=== PATIENT | female | born 1950 | race Caucasian/White ===

== ENCOUNTER 2017-03-02 13:44 | Emergency (ER) | payer MEDICARE, OTHER ==
--- OUTSIDE RECORDS SUMMARY | 2017-03-02 14:57 | XMS REPORT | Continuity of Care Document ---
:1950 Author Organization [facility] ([facility]) Address [place] [address] Phone [phone] Care Team Providers Name Role Phone Andry Mcrae Primary Care Provider [phone] Source Comments This disclosure is being made pursuant to the Care Everywhere program, applicable federal and state laws, and may not contain all informaitonavailable regarding this patient.[facility] ([facility]) Active Allergies and Adverse Reactions Allergen Noted Date Severity Reactions Comments Tetrahydrozoline 07/01/2012 OTHER Experienced pain. Unable to recall the name of the opthalmic eye drops she reacted to. Current Medications Prescription Sig. Disp. Refills Start Date End Date Status levothyroxine 50 mcg Take 50 mcg by mouth Active tablet every morning before breakfast. atorvastatin (LIPITOR) Take 10 mg by mouth Active 10 mg tablet 3 times weekly. Takes at HS on . lisinopril-hydrochlorot Take 0.5 Tabs by Active hiazide 20-12.5 mg per mouth daily. tablet multivitamin tablet Take 1 Tab by mouth Active daily. Omeprazole 20 mg TbEC Take 20 mg by mouth Active daily. OMEGA-3S/DHA/EPA/FISH Take 2 Caps by mouth Active OIL (OMEGA 3 PO) daily. VITAMIN B COMPLEX PO Take by mouth Active daily. tamsulosin 0.4 mg ER Take 1 Cap by mouth 30 Cap 11 03/04/2013 Active capsule daily. Indications: incomplete bladder emptying Active Problems Problem Noted Date HTN (hypertension) 07/02/2012 GERD (gastroesophageal reflux disease) 07/02/2012 Hypothyroid 07/02/2012 Urinary urgency 07/02/2012 Social History Tobacco Use Types Packs/Day Years Used Date Never Smoker Smokeless Tobacco: Never Used Alcohol Use Drinks/Week oz/Week Comments No Last Filed Vital Signs Vital Sign Reading Time Taken Blood Pressure 127/67 03/04/2013 11:31 AM CDT Pulse 78 03/04/2013 11:31 AM CDT Temperature 36.6 C (97.9 F) 03/04/2013 11:31 AM CDT Respiratory Rate 20 03/04/2013 11:31 AM CDT Height 1.575 m (5' 2") 09/03/2012 12:40 PM NUTRITION CONSULTANT Weight 76.204 kg (168 lb) 09/03/2012 12:40 PM NUTRITION CONSULTANT Body Mass Index 30.72 09/03/2012 12:40 PM NUTRITION CONSULTANT Oxygen Saturation 96% 03/04/2013 11:31 AM CDT Plan of Care Health Maintenance Due Date Last Done Comments HCV Screening 1950 Hepatitis B Vaccine (1 of 3 - Primary Series) 1950 Tdap Vaccine 1962 Lipid Disorder Screening 1969 Td Vaccine 1969 Cervical Cancer Screening 1981 Mammogram 1991 Colonoscopy 02/14/2001 Zoster Vaccine 2011 Osteoporosis Screening (DXA Bone Density) 02/16/2016 Pneumococcal Vaccine (1 of 2 - PCV13) 02/16/2016 Influenza Vaccine: Seasonal (#1) 05/07/2016 Results from Last 3 Months Not on file
[2017-03-02 15:07] LABS: Hematocrit 39.6 % (37.0-47.0); Hemoglobin 13.3 gm/dL (12.5-16.0); Mean Cell Volume 88.4 fl (78-100); Mean Corpuscular Hemoglobin 29.7 pg (27-31); Mean Corpuscular Hgb Conc 33.6 g/dl (32-36); Mean Platelet Volume 9.5 fl (6.0-9.5); Neutrophil # 5.7 K/mm3 (1.3-6.0); Neutrophil % 61.1 % (42-75.0); Platelet Count 211 K/mm3 (150-450); Red Blood Count 4.48 M/mm3 (4.2-5.4); Red Cell Distribution Width 12.3 % (11.5-14.0); White Blood Count 9.3 K/mm3 (4.0-10.5)
--- NOTE | 2017-03-02 15:10 | ERNOTE ---
Lower Extremity HPI - Narrative Date of Service: 03/02/17 - General Lower Extremities Pain: leg: bilateral - calf Time Seen by Provider: 03/02/17 14:45 Source: patient Exam Limitations: no limitations - Immun/Allergies/Home Medications Immunizations: IMMUNIZATION HX History of Influenza Vaccine No Hx Pneumococcal Vaccination No Allergies/Adverse Reactions: Allergies Allergy/AdvReac Type Severity Reaction Status Date / Time eye drop Allergy Mild Uncoded 03/02/17 13:59 Home Medications: HOME MEDICATIONS EPINEPHrine [Epipen] 0.3 mg IM ONCE PRN 04/23/13 [Last Taken Unknown] Levothyroxine Sodium [Synthroid] 50 mcg PO DAILY 04/23/13 [Last Taken Unknown] Lisinopril/Hydrochlorothiazide [Lisinopril-Hctz 20-12.5 mg Tab] 0.5 tab PO DAILY 04/23/13 [Last Taken Unknown] Multivitamin [Multivitamins] 1 each PO DAILY 04/23/13 [Last Taken Unknown] predniSONE [Prednisone] 3 tab PO DAILY #9 tab 03/02/17 [Last Taken Unknown] - History of Present Illness Narrative: Pt. comes in with c/o R calf pain that started a week ago and has worsened and moved to the L calf as well. Pt. also states that she has developed intermittent Front and side of the leg pain. Pt. states that she has taken Ibuprofen without relief. Pt. denies any previous injury or illness but was seen by ortho who xrayed her knees and told her she did not have arthritis. Review of Systems - Review of Systems Constitutional: Present: no symptoms reported. Absent: recent illness, fever, chills, weakness, fatigue, malaise EYE: Present: no symptoms reported ENT: Present: no symptoms reported Respiratory: Present: no symptoms reported. Absent: shortness of breath, cough , wheezing Cardiology: Present: no symptoms reported. Absent: chest pain, palpitations, edema Gastrointestinal/Abdominal: Present: no symptoms reported Genitourinary: Present: no symptoms reported Musculoskeletal: Present: muscle pain - L calf Skin: Present: no symptoms reported Neurological: Present: no symptoms reported. Absent: headache, dizziness/light- headedness, numbness, tingling All Other Systems: All systems neg except as marked - Patient's Past Medical History Patient History - Medical: Hypothyroidism Patient History - Cardiac/Respiratory: Hypertension, Hyperlipidemia Patient History - Cancer: No Hx of Cancer Patient History - Surgical Procedures: , Hernia Repair Patient History - Other: None - Social History Living Situations: home Psych History: No pertinent hx Alcohol Use: none Drug Use: none - Immunizations Hx Pneumococcal Vaccination: No History of Influenza Vaccine: No Physical Exam - Physical Exam General Appearance: Present: wd/wn, alert, no apparent distress Eye Exam: Normal inspection: bilateral, PERRL: bilateral, EOMI: bilateral Ears, Nose, Throat: Present: normal ENT inspection, normal pharynx Neck: Present: normal inspection, nontender. Absent: lymphadenopathy (R), lymphadenopathy (L) Respiratory: Present: no respiratory distress, normal breath sounds, no accessory muscle use, chest nontender, lungs clear Cardiovascular/Chest: Present: regular rate, rhythm, no murmur, normal peripheral pulses Gastrointestinal/Abdominal: Present: normal bowel sounds, nontender, nondistended, soft, no organomegaly Back Exam: Present: normal inspection Extremity Exam: Present: normal range of motion, no edema, calf tenderness. Absent: bony tenderness, joint redness, joint swelling Neurological Exam: Present: alert, oriented, normal mood/affect, no motor/ sensory deficits ED Progress - Date and Time Seen: Date and Time: 03/02/17 17:01 Given that pt. has elevated ESR and negative US and doppler feel that this is likely autoimmune possibly rhumatoid. Will start pt. on prednisone dose pack and have her follow up with PCP. - Results and Orders Patient's Lab Results:: I have reviewed the patient's lab results. - Vital Signs Patient's Vital Signs:: I have reviewed the patient's vital signs. Vital Signs: Vital Signs 03/02/17 03/02/17 13:54 14:30 Temperature 37.0 C Pulse Rate 76 82 Respiratory 12 Rate Blood Pressure 141/76 146/55 O2 Sat by Pulse 98 95 Oximetry - CT/Ultrasound CT/Ultrasound Narrative: US negative for arterial dysfunction or DVT - Progress/Reassessment Chief Complaint: Lower Extremity Pain/ Injury Progress:: Improved Departure Clinical Impression: Bilateral calf pain - Departure Disposition: Home self-care Condition: Good Instructions: Intermittent Claudication Additional Instructions: Please follow up with primary provider in 2-3 days. Referrals: Sinai Durand MD [Primary Care Provider] - Prescriptions: predniSONE [Prednisone] 3 tab PO DAILY #9 tab
[2017-03-02 15:24] LABS: Albumin * 4.1 gm/dl (3.4-5.0); Anion Gap 11.5 mmol/L (6.8-13.8); BUN/Creatinine Ratio 23.1 (9.0-21.6); Bilirubin, Total 0.4 mg/dL (0.0-1.1); CRP 0.2 mg/dL (0.0-0.9); Ca. Corrected For Albumin 8.6 mg/dL (8.4-10.2); Carbon Dioxide 29.3 mmol/L (24-32.6); Potassium 3.8 mmol/L (3.4-4.6); Total Protein 7.3 gm/dL (6.2-8.2); Uric Acid 4.8 mg/dL (2.6-7.2)
[2017-03-02 16:59] VITALS: BP 133/59
== END 2017-03-02 17:38 | disposition home or self-care (01) ==
LOC: ER 13:44
DX: M79.662 Pain in left lower leg (principal); M79.661 Pain in right lower leg; E03.9 Hypothyroidism, unspecified; I10 Essential (primary) hypertension

== ENCOUNTER 2017-05-09 10:05 | Day surgery (SDC) | payer MEDICARE, OTHER ==
--- NOTE | 2017-05-09 11:43 | OR ---
Anesthesia Pre Procedure Eval Pre Procedure Evaluation: Last Vital Signs Temp 36.6 C 05/09/17 10:39 Pulse 59 L 05/09/17 10:39 Resp 16 05/09/17 10:39 BP 133/56 05/09/17 10:39 Pulse Ox 98 05/09/17 10:39 PRE PROCEDURE EVALUATION:: DATE: 05/09/2017 TIME: 11:30 INDICATIONS: Radicular low back pain. Bulging disc L5-S1 PAST MEDICAL HISTORY: No previous epidural steroid injections. EXAM: Heart rate regular. Lungs clear and equal. Patient complains of bilateral hip and leg pain. Her low back pain is not as severe as her leg pain. Procedure risks and benefits were explained to and accepted by the patient. ASSESSMENT OF MEDICAL STATUS: No contraindication to lumbar epidural steroid injection. PLANNED PROCEDURE : Fluoroscopy-guided lumbar epidural steroid injection at L5- S1. Home Medications: HOME MEDICATIONS EPINEPHrine [Epipen] 0.3 mg IM ONCE PRN 04/23/13 [Last Taken Unknown] Lisinopril/Hydrochlorothiazide [Lisinopril-Hctz 20-12.5 mg Tab] 0.5 tab PO DAILY 04/23/13 [Last Taken 05/09/17 08:00] Multivitamin [Multivitamins] 1 each PO DAILY 04/23/13 [Last Taken Unknown] Acetaminophen [Tylenol] 650 mg PO PRN 05/08/17 [Last Taken Unknown] Cholecalciferol (Vitamin D3) [Vitamin D3] 2,000 unit PO DAILY 05/08/17 [Last Taken Unknown] Famotidine 20 mg PO DAILY 05/08/17 [Last Taken Unknown] Levothyroxine Sodium [Synthroid] 25 mcg PO DAILY 05/08/17 [Last Taken Unknown] [place]-3/Dha/Epa/Fish Oil [[place] 3 500 Softgel] 1 each PO DAILY 05/09/17 [Last Taken Unknown]
[2017-05-09] MEDS ORDERED: LIDOCAINE HCL/PF 5 ML VIAL IJ ONE (12:00)
[2017-05-09] MEDS ORDERED: DEXAMETHASONE SOD PHOSPHATE 10 MG/ML VIAL IJ ONE (12:00)
[2017-05-09] MEDS ORDERED: IOPAMIDOL 20 ML VIAL IJ ONE (12:00)
--- NOTE | 2017-05-09 12:36 | OR ---
Anesthesia Procedure Note - Anesthesia Procedure Note Narrative: Vital Signs - Last Taken Temp 36.6 C 05/09/17 10:39 Pulse 78 05/09/17 12:20 Resp 18 05/09/17 12:20 BP 156/89 05/09/17 12:20 Pulse Ox 98 05/09/17 12:20 O2 Oxygen Delivery Method Room Air 05/09/17 12:30 ANESTHESIA PROCEDURE NOTE Date of Procedure: 05/09/2017 Time of procedure: 12:15. Performed by: Lexa Rust CRNA Mobile Disc Jockey: None. Preprocedure diagnosis: Radicular low back pain. Bulging disc L4 5 L5-S1. Post procedure diagnosis: Same. Procedure: Epidural Steroid Injection at L4 5. Indications: Radicular low back pain.. Findings: See below. Details of the procedure: The patient was brought back to operating room #3. The patient was then placed in the prone position. Back was prepped with DuraPrep. Patient was then draped in sterile fashion. Lidocaine 1% was infiltrated to the skin and subcutaneous tissues at the level of the L5-S1 interspace. Difficult needle placement at this interspace. Unable to identify epidural space. 1% lidocaine was infiltrated at the L4 5 interspace. The epidural space was identified using a 20-gauge Tuohy needle with loss-of- resistance technique and fluoroscopic guidance. A total of 3 mL of Isovue-200 contrast dye was injected in the first the lateral and AP positions to confirm needle placement. Isovue-200 contrast dye was also used at the L5-S1 interspace to determine needle placement. Dye appeared to be pooling at the tip of the needle at this interspace. Dexamethasone 10 mg + 5 mL of 1% preservative-free lidocaine was administered to the epidural space after negative aspiration for blood and CSF. The Tuohy needle was removed intact. A Band-Aid was applied to the patient's back. The patient was then placed in a supine position for 5 minutes before returning to the ambulatory surgical unit. Total fluoroscopy time was 51.4 seconds. Total dose 26.4 m/gy EBL: Minimal. Fluids: N/A. Specimen: N/A. Post procedure condition: The patient tolerated the procedure well. No complications were noted. Thank you for this consultation. Lexa Rust CRNA
[2017-05-09 13:01] VITALS: BP 143/65
== END 2017-05-09 10:06 | disposition home or self-care (01) ==
LOC: AMB 10:05
PROVIDERS: ATTEND Physician Assistant
PROC: 3E0S3BZ Introduction of Anesthetic Agent into Epidural Space, Percutaneous Approach (ICD-10-PCS; 2017-05-09)
PROC: 3E0S33Z Introduction of Anti-inflammatory into Epidural Space, Percutaneous Approach (ICD-10-PCS; principal; 2017-05-09 12:45)
DX: M51.27 Other intervertebral disc displacement, lumbosacral region (principal)

== ENCOUNTER 2017-08-07 08:32 | Day surgery (SDC) | payer MEDICARE, OTHER ==
[~2017-08-07 08:32] MED LIST: RINGER'S SOLUTION,LACTATED 1,000 ML IV PRN
[2017-08-07] MEDS ORDERED: RINGER'S SOLUTION,LACTATED 1,000 ML IV ONE (08:57)
[2017-08-07] MEDS ORDERED: RINGER'S SOLUTION,LACTATED 1,000 ML IV PRN (10:07)
[2017-08-07 10:40] VITALS: BP 104/63
--- NOTE | 2017-08-07 19:32 | OR ---
Operative Report - Dictated Report Narrative: OPERATIVE REPORT DATE OF OPERATION: 08/07/2017 PREOPERATIVE DIAGNOSIS: No recent dedicated colon studies POSTOPERATIVE DIAGNOSIS: Mild diverticulosis OPERATION: Colonoscopy SURGEON: Mayito Herrera MD ANESTHESIA: BEBA Rust CRNA INDICATIONS FOR PROCEDURE: The patient is a 67-year-old female referred by Dr Durand. The patient had a previous colonoscopy in 2006. There is no family history of colon cancer. The patient is currently taking Benefiber FINDINGS: Mild sigmoid diverticulosis otherwise normal colonoscopy to the cecum NARRATIVE OF PROCEDURE: The patient was identified in the holding area, and prior to the administration of anesthetic, a multidisciplinary timeout was observed. With the patient in the left lateral position and after the administration of intravenous sedation, the perineum was inspected. There was no evidence of pilonidal disease or skin breakdown. The external appearance of the anus was normal. Sphincter tone was good. The flexible fiberoptic colonoscope was inserted into the rectum which was insufflated with air. The rectal mucosa and submucosal vascular pattern appeared normal, the prep was seen to be complete. The scope was advanced through the sigmoid colon, which contained numerous small non-impacted noninflamed diverticular openings. The scope was advanced up the descending colon, and around the splenic flexure where the triangular haustral architecture of the transverse colon was seen. The scope was advanced across the transverse colon, around the hepatic flexure to the cecum, where the confluence of tenia and the ileocecal valve were identified. The mucosa at this level appeared normal. The scope was then slowly withdrawn in a circular fashion so that all aspects of colonic mucosa were inspected. The colon was normal in course and caliber. The haustral architecture appeared well preserved throughout with no evidence of external compression. The mucosa and submucosal vascular pattern appeared normal, specifically there was no gross evidence to suggest colitis or inflammatory bowel disease and no AV malformations were seen. The diverticulosis was mild in degree and confined primarily to the sigmoid colon. No polyps were encountered. The scope was gradually withdrawn to the level of the rectum. As much insufflated air as possible was removed. The scope was withdrawn from the patient and the procedure terminated. The patient tolerated the anesthetic and procedure well without complication and was transferred back to the ambulatory surgery area awake and in stable condition. The patient remained stable throughout a period of postoperative observation. She denied abdominal discomfort, was able to tolerate by mouth intake, and was up without assistance. I shared the operative findings with the patient and her and she was given copies of the photographs which appear in the medical record. She was discharged home with instructions not to engage in hazardous activity today, but may resume normal activity tomorrow, and advance diet as tolerated. She is to continue those medications as listed in the history and physical exam. A pamphlet on diverticular disease was reviewed with her and given to her. Was recommended that she continue Benefiber and a high fiber diet. RECOMMENDATION: Colon surveillance in 10 years depending upon findings or symptoms Reviewed and electronically signed
== END 2017-08-07 08:33 | disposition home or self-care (01) ==
LOC: AMB 08:32
PROVIDERS: ATTEND Surgery
PROC: 0DJD8ZZ Inspection of Lower Intestinal Tract, Via Natural or Artificial Opening Endoscopic (ICD-10-PCS; principal; 2017-08-07 09:45)
DX: Z12.11 Encounter for screening for malignant neoplasm of colon (principal); K57.30 Diverticulosis of large intestine without perforation or abscess without bleeding; I10 Essential (primary) hypertension; E78.5 Hyperlipidemia, unspecified; K21.9 Gastro-esophageal reflux disease without esophagitis; E03.9 Hypothyroidism, unspecified; Z68.32 Body mass index [BMI] 32.0-32.9, adult